=== PATIENT | female | born 1945 | race Caucasian/White ===

== ENCOUNTER 2023-03-20 13:46 | Emergency (ER) | payer OTHER ==
[~2023-03-20] VITALS: Ht 160 cm; Wt 83.9 kg
[2023-03-20 14:31] VITALS: BP 182/60; PULSE 56; RESP 18
[2023-03-20] MEDS ORDERED: CEPH500B PO (15:28)
[2023-03-20] MEDS ORDERED: CEPHALEXIN 500 MG CAPSULE PO ONE (15:30)
[2023-03-20] MEDS ORDERED: ACETAMINOPHEN 500 MG TABLET PO ONE (15:30)
[2023-03-20] MEDS ORDERED: NEOMY SULF/BACITRA/POLYMYXIN B 1 EACH PACKET TP ONE (15:30)
[2023-03-20] MEDS ORDERED: TETANUS/DIPHTHERIA TOXOID [ADULT] 0.5 ML VIAL IM ONE (15:30)
== END 2023-03-20 18:02 | disposition home or self-care (01) ==
LOC: EDH 13:46
DX: S80.02XA Contusion of left knee, initial encounter (principal); S60.416A Abrasion of right little finger, initial encounter; M17.12 Unilateral primary osteoarthritis, left knee; I12.9 Hypertensive chronic kidney disease with stage 1 through stage 4 chronic kidney disease, or unspecified chronic kidney disease; E11.22 Type 2 diabetes mellitus with diabetic chronic kidney disease; N18.9 Chronic kidney disease, unspecified; Z90.49 Acquired absence of other specified parts of digestive tract; Z90.89 Acquired absence of other organs; Z98.890 Other specified postprocedural states; W01.0XXA Fall on same level from slipping, tripping and stumbling without subsequent striking against object, initial encounter; Y93.01 Activity, walking, marching and hiking; Y92.89 Other specified places as the place of occurrence of the external cause; Y99.8 Other external cause status
CPT/HCPCS: 73562; 90471; 90714

== ENCOUNTER 2024-02-01 08:00 | Day surgery (SDC) | payer OTHER ==
[2024-02-01] VITALS (16 sets, daily range): BP systolic 117–189; BP diastolic 44–79; PULSE 53–74; RESP 16–19; TEMP 97.1–98
[~2024-02-01] VITALS: Ht 160 cm; Wt 69.8 kg
[2024-02-01] MEDS: HEParin-NS 1,000 UNIT/500 ML 500 ML IV ONE
[~2024-02-01 08:00] MED LIST: ERGO500093 PO; FERR325T29 PO; HYDR100T15 PO; ROSU10TA72 PO
[2024-02-01 09:41] LABS: BASOPHILS # (AUTO) 0.06 K/uL (0.00-0.20); BASOPHILS % (AUTO) 1.2 % (0.0-5.0); EOSINOPHILS # (AUTO) 0.43 K/uL (0.00-0.70); EOSINOPHILS % (AUTO) 8.4 % (0.0-8.0); HEMATOCRIT 36.2 % (36-48); IMMATURE GRANULOCYTE ABSOLUTE 0.02 K/uL (0-1); LYMPHOCYTES # (AUTO) 1.1 K/uL (1.0-4.8); LYMPHOCYTES % (AUTO) 21.6 % (21.0-51.0); MEAN CORPUSCULAR HEMOGLOBIN 29.6 pg (27.0-33.0); MEAN CORPUSCULAR HGB CONC 33.1 g/dL (32.0-36.0); MEAN CORPUSCULAR VOLUME 89.2 fL (79-99); MONOCYTES # (AUTO) 0.6 K/uL (0.1-1.0); NEUTROPHILS # (AUTO) 2.9 K/uL (1.8-7.7); NEUTROPHILS % (AUTO) 57.4 % (40.0-77.0); PLATELET COUNT (AUTO) 124 K/uL (130-400); RED BLOOD CELL COUNT(AUTO) 4.06 MIL/uL (4.00-5.50); RED CELL DISTRIBUTION WIDTH 14.6 % (11.0-15.5); WHITE BLOOD COUNT (AUTO) 5.1 K/uL (4.8-10.8)
[2024-02-01] MEDS ORDERED: LIDOCAINE PF 100MG/5ML (2%) SYRINGE 5ML ONE (09:42)
[2024-02-01] MEDS ORDERED: proPOFol 10 MG/ML 20ML VIAL IV ONE ×2 (09:44→10:03)
[2024-02-01] MEDS ORDERED: MIDAZOLAM HCL 1 MG/ML 2ML VIAL ONE (09:44)
[2024-02-01] MEDS ORDERED: rocuRONium bROMide 10MG/1ML 5ML VL ONE ×2 (09:44→10:03)
[2024-02-01] MEDS ORDERED: FENTanyl CITRate PF 50 MCG/1 ML 2ML VIAL ONE ×2 (09:45→10:04)
[2024-02-01 09:47] LABS: CREATININE 5.2 mg/dL (0.5-1.0); POTASSIUM 4.2 mmol/L (3.5-5.1)
[2024-02-01 09:53] LABS: BILIRUBIN,TOTAL 0.3 mg/dL (0.2-1.0); TOTAL PROTEIN, SERUM 6.2 g/dL (6.0-8.3)
[2024-02-01] MEDS ORDERED: GLYCOPYRROLATE 0.2 MG/ML 5 ML VIAL ONE ×2 (10:03→10:16)
[2024-02-01] MEDS ORDERED: ondanSETRON 4MG INJ ONE (10:03)
[2024-02-01] MEDS ORDERED: NEOSTIGMINE METHYLSULFATE 1MG/ML IV ONE (10:03)
[2024-02-01] MEDS ORDERED: dexaMETHasone SOD PHOSPHATE 4 MG/ML 1ML VIAL ONE (10:17)
--- NOTE | 2024-02-01 10:22 | EKG ---
[facility] Test Date: 2024-02-01 Test Time: 09:48:16 Pat Name: DARWIN GAITAN Department: [facility] Room: [facility] 12 Gender: F Dye Maker: [id number] : 1945 Requested By: DON LOPEZ Order Number: [id number] Reading MD: Virgie Ruby Measurements Intervals [place] Rate: 55 P: -2 [place]: 190 QRS: -8 QRSD: 114 T: 27 QT: 466 QTc: 445 Interpretive Statements Sinus bradycardia with marked sinus arrhythmia No previous ECG available for comparison Electronically Signed On 02-01-2024 13:16:17 [employer]OP ROLLER by Virgie Ruby Please click the below link to view image of tracing.
[2024-02-01 10:23] LABS: INR 0.95 (0.85-1.15); PROTHROMBIN TIME 10.3 SEC (9.6-11.6)
[2024-02-01] MEDS: 0.9% NACL 500ML IV.SOLN 500 ML IV ONE (10:35)
[2024-02-01] MEDS: ceFAZolin SODIUM 2 GM VIAL ONE (10:36)
[2024-02-01] MEDS ORDERED: ASPI-1197 PO (10:43)
[2024-02-01] MEDS ORDERED: METO200T37 PO (10:43)
[2024-02-01] MEDS ORDERED: DOXA2TAB2 PO (10:43)
[2024-02-01] MEDS ORDERED: FURO20TA4 PO (10:43)
[2024-02-01] MEDS ORDERED: GABA300C PO (10:43)
[2024-02-01] MEDS ORDERED: HEParin 10,000 UNIT/10ML (1,000 UNIT/ML) VIAL ONE (11:39)
--- NOTE | 2024-02-01 12:16 | OP ---
Operative Note: DATE OF PROCEDURE: 02/01/24 SURGEON: DON LOPEZ MD [employer] ENTERTAINER: [] PREOPERATIVE DIAGNOSIS: End-stage renal disease POSTOPERATIVE DIAGNOSIS: End-stage renal disease PROCEDURE: Left upper extremity brachiobasilic fistula creation with transposition INDICATIONS: Patient needs access for dialysis ESTIMATED BLOOD LOSS: 15cc Devices left in place: None Anesthesia: General endotracheal DESCRIPTION OF PROCEDURE: Patient is brought to the operating room placed on the operating table in a supine position. Once general endotracheal anesthesia is achieved patient's right left upper extremity up to the axilla is prepped and draped in sterile fashion. Using ultrasound we identified the basilic vein and confirmed that it was adequate for fistula creation. We then proceeded to create a longitudinal incision medially in the arm and dissected down through the subcutaneous tissue to expose the basilic vein. We exposed that for a length of about 20 cm down to the antecubital fossa. And clipped all its branches. We then proceeded to create a transverse incision at the antecubital fossa. Expose the brachial artery for a length of about 4 cm and obtained proximal and distal control. We then asked anesthesia to give 5000 units of heparin. I then proceeded to clamp the basilic vein proximally and distally divided it at the level of the elbow. And suture ligated the distal and end. We then proceeded to to dilate the vein with heparinized saline and ensured that there were no leaks from all the branches were clipped or sutured. We then proceeded to use a [place] tunneler to tunnel the vein medially and brought it out through the antecubital fossa incision. I then clamped the brachial artery proximally and distally. I then proceeded to create a end-to-side anastomosis between the brachial artery and the basilic vein at the antecubital fossa with 6-0 Prolene. I then opened up the clamp to the vein first and that there to be backflow. And then proceeded to open the proximal clamp on the artery emanated flush out the anastomosis and then open the distal clamp. I then proceeded to suture the anastomosis. We ensured with a Doppler that we had a strong palmar arch pulse at the left hand and ulnar and radial pulses as well. We had a good thrill throughout the fistula. We then closed both incisions with 2 layers with subcutaneous tissue being closed with 2-0 Vicryl in running fashion and the skin was closed with 4-0 Monocryl in running fashion. Dermabond were applied over top patient tolerated the procedure well all counts were correct x2 at the end of the procedure. DON LOPEZ MD Feb 01, 2024 12:16
--- NOTE | 2024-02-01 14:15 | NUR ---
Full and complete discharge instructions given and signed for. All questions answered. Both voiced understanding to Surgical procedure precautions and diet.L UE AVG with thrill and Bruit intact. Neurovascularly intact. PIV removed with catheter tip intact. Patient ambulated to bathroom and voided small amount. Patient denies c/o pain or discomfort. Tolerated ice chips and sips or water. W/C to POV with Family to home.
== END 2024-02-01 14:15 | disposition home or self-care (01) ==
LOC: DAH 08:00
PROVIDERS: ATTEND Student in an Organized Health Care Education/Training Program
DX: I12.0 Hypertensive chronic kidney disease with stage 5 chronic kidney disease or end stage renal disease (principal); E11.22 Type 2 diabetes mellitus with diabetic chronic kidney disease; N18.6 End stage renal disease; Z90.49 Acquired absence of other specified parts of digestive tract; Z90.710 Acquired absence of both cervix and uterus; Z79.899 Other long term (current) drug therapy; Z98.890 Other specified postprocedural states
CPT/HCPCS: 36819; 80053; 85025; 85610; 85730; 86850; 86900; 86901; 82948 ×2; 36415; 93005; J1100; A4663; J7030; J7040; J3010; J3490 ×2; J2003; J1644 ×2; J2250; J2704; J2405; J2710; J0690; A4649 ×3; C1713 ×2; A4215; A4222; A4221; A4223 ×2; A4600